=== PATIENT | male | born 1995 | race Caucasian/White ===

== ENCOUNTER 2019-02-11 21:06 | Emergency (ER) | payer SELFPAY ==
[2019-02-12] MEDS ORDERED: LIDOCAINE 1% INJ-PF (10 MG/ML) 30 ML SDV INJ ONE (01:33)
[2019-02-12] MEDS ORDERED: DIPH/PERTUSS(ACELL)/TETANUS VAC/PF 0.5 ML SYR (>=10YO) IM ONE (02:16)
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
[2019-02-12 02:33] VITALS: BP 127/79
== END 2019-02-12 03:30 | disposition home or self-care (01) ==
LOC: ER 21:06
DX: S01.81XA Laceration without foreign body of other part of head, initial encounter (principal); V86.09XA Driver of other special all-terrain or other off-road motor vehicle injured in traffic accident, initial encounter; F17.210 Nicotine dependence, cigarettes, uncomplicated; Z23 Encounter for immunization
CPT/HCPCS: 90471; 90715; 99282

== ENCOUNTER 2019-02-19 09:04 | Emergency (ER) | payer SELFPAY ==
[2019-02-19 09:11] VITALS: BP 122/63
--- NOTE | 2019-02-19 09:57 | ER Document Report ---
HPI - HPI Patient complains to provider of: suture removal Time Seen by Provider: 02/19/19 09:53 Pain Level: Denies Context: Patient presents for suture removal. - CONSTITUTIONAL Constitutional: DENIES: Fever, Chills - REPRODUCTIVE Reproductive: DENIES: : Past Medical History - Social History Smoking Status: Unknown if Ever Smoked Chew tobacco use (# tins/day): No Frequency of alcohol use: Occasional Drug Abuse: None Family History: Reviewed & Not Pertinent Patient has suicidal ideation: No Patient has homicidal ideation: No Renal/ Medical History: Denies: Hx Peritoneal Dialysis - Immunizations Immunizations up to date: Yes Hx Diphtheria, Pertussis, Tetanus Vaccination: Yes - 02/12/2019 Vertical Provider Document - CONSTITUTIONAL Notes: GENERAL: Well-appearing in no acute distress, well-nourished SKIN: Well-healed laceration above the left eyebrow no evidence of dehiscence, no surrounding erythema, four 5-[address] - INFECTION CONTROL TRAVEL OUTSIDE OF THE [place] IN LAST 30 DAYS: No Course - Re-evaluation Re-evalutation: 02/19/19 09:57 Sutures removed by PCT without complication, wound has healed well, patient given strict return precautions. Stable for discharge - Vital Signs Vital signs: Temp Pulse Resp BP Pulse Ox 97.5 F 63 16 122/63 100 02/19/19 09:09 02/19/19 09:09 02/19/19 09:09 02/19/19 09:09 02/19/19 09:09 Discharge - Discharge Clinical Impression: Visit for suture removal Condition: Good Disposition: HOME, SELF-CARE Additional Instructions: You had your sutures removed. The wound healed nicely. Please return to the emergency department if you start developing fevers, if the wound reopens, you get redness around the site that keeps spreading, or you have any other concerning symptoms.
== END 2019-02-19 10:01 | disposition home or self-care (01) ==
LOC: ER 09:04
DX: S01.81XD Laceration without foreign body of other part of head, subsequent encounter (principal); X58.XXXD Exposure to other specified factors, subsequent encounter
CPT/HCPCS: 99281